=== PATIENT | female | born 1980 | race Caucasian/White ===

== ENCOUNTER 2025-06-21 19:31 | Emergency (ER) | payer BC, OTHER ==
[2025-06-21] MEDS: Bacitracin Oint 1 GM U/D Packet TOP ONE (20:25)
== END 2025-06-21 20:35 | disposition home or self-care (01) ==
LOC: LL.ED 19:31
DX: S81.812A Laceration without foreign body, left lower leg, initial encounter (principal); Z79.899 Other long term (current) drug therapy; W26.8XXA Contact with other sharp object(s), not elsewhere classified, initial encounter; Y93.H9 Activity, other involving exterior property and land maintenance, building and construction; Y92.094 Garage of other non-institutional residence as the place of occurrence of the external cause
CPT/HCPCS: 12001; 99282; 99283; J2003